=== PATIENT | male | born 1945 ===

== ENCOUNTER 2021-03-10 12:37 | Inpatient (IN) ==
[2021-03-10] MEDS ORDERED: 0.9 % SODIUM CHLORIDE 1,000 ML IV ONE (12:43)
--- NOTE | 2021-03-10 13:07 | Emergency Department Note ---
Weakness HPI General Chief complaint: Weakness Stated complaint: Weakness Time Seen by Provider: 03/10/21 12:42 Mode of arrival: EMS History of Present Illness HPI Narrative: This is a 75-year-old male who lives independently at home recently admitted to [facility] for Covid pneumonia from 03/06/2021 to 03/09/2021. He was sent home yesterday, and family noticed this morning that he was incontinent of feces and urine, having difficulty breathing, was confused and very weak and called EMS to have him brought into [facility]. Patient is a former smoker who was diagnosed with Covid pneumonia 1 week prior to his admission to [facility]. At [facility] he was given IV remdesivir and steroid and had rapid improvement of his O2 requirements. There was some concern for muffled speech and confusion and he had a head CT of the brain that was negative for stroke. He was sent home on guaifenesin and a 5-day burst of prednisone 40 mg. Patient is not on other medications, no other known medical issues. Related Data Home Medications Medication Instructions Recorded Confirmed No Known Home Meds 03/10/21 03/10/21 Allergies Allergy/AdvReac Type Severity Reaction Status Date / Time No Known Drug Allergies Allergy Verified 03/10/21 12:38 Review of Systems ROS ROS Narrative: Narrative: All systems ED: reviewed and negative except as stated. [facility] Narrative Patient History Narrative: Narrative: Medical/Surgical/Family History All Active Problems (Updated 03/10/21 @ 18:07 by Araceli Ruggiero PA-C) Pneumonia due to COVID-19 virus (Acute) Hypoxia (Acute) Encephalopathy (Acute) Weakness (Acute) Pneumonia due to 2019 novel coronavirus (Acute) Social History Smoking Status: Former smoker Exam Narrative Narrative: General: Minimally interactive, not answer my questions and not able to follow commands. He is ill-appearing. HEENT: PERRLA, EOMI, normocephalic. Dry mucous membranes. Normal facies and normal dentition. Chest: Symmetric, no pain to palpation Respiratory: Lungs clear to auscultation bilaterally. No respiratory distress. Unlabored breathing. Heart: Regular rate and rhythm, no murmurs/clicks/rubs. Abdomen: Non-tender, Non distended, normal bowel tones. No organomegaly. Extremities: Warm and well perfused. No edema. DP 2+ bilaterally. No venous stasis. Neuro: Moving all fours. No facial droop. Unable to do full cranial nerve exam due to altered mental status. Skin: Warm dry, no rashes or lesions, no cyanosis. Psych: Altered mental status Heme/Lymph: No abnormal bruising Course Course Course Narrative: 75-year-old male presents with weakness, altered mental status and recent admission for Covid pneumonia. Reevaluation(s) Reevaluation #1: Obtain chest x-ray, basic lab work, lactic acid Establish IV access and give IV fluids Covid swab Reevaluation #2: Antigen Covid swab is negative. Lactic acid not elevated. No leukocytosis, no renal dysfunction. Mild transaminitis. No electrolyte abnormalities. Chest x-ray shows stable bilateral infiltrates when compared to chest x-ray and CTA of the chest from 03/06/2021. Reevaluation #3: Patient is unsafe for discharge home given his weakness and altered mental status. I have no clear reason for that at this time. The patient did have a CT of the head at [facility] within the last 2 days that was negat kelsea for acute findings think the patient needs to come in for further work-up. I discussed the case with the hospitalist and he would like me to order an ABG, repeat CT of the head, procalcitonin to rule out infection, and we will obtain a UA. Additional Reevaluation(s): Head CT shows no acute findings and age related atrophy. ABG with pH of 7.45, PCO2 32, PO2 of 61, lactic acid of 1.4. Bicarb is 22.2 Vital Signs Vital signs: Vital Signs Temperature 98.1 F 03/10/21 12:39 Pulse Rate 95 H 03/10/21 12:39 Respiratory Rate 20 03/10/21 12:39 Blood Pressure 167/80 03/10/21 12:39 Pulse Oximetry (%) 95 03/10/21 12:39 Temperature 98.1 F 03/10/21 12:39 Pulse Rate 81 03/10/21 18:17 Respiratory Rate 20 03/10/21 12:39 Blood Pressure 140/84 03/10/21 18:17 Pulse Oximetry (%) 92 03/10/21 18:17 [facility] MDM Narrative Medical decision making narrative: Weakness Encephalopathy Covid pneumonia As above, the patient is unsafe discharge home. He remains encephalopathic. I discussed case with the hospitalist who is accepted the patient for admission. Lab Data Result diagrams: 03/10/21 12:43 03/10/21 12:43 Labs: Lab Results 03/10/21 03/10/21 03/10/21 Range/Units 12:43 12:43 13:45 WBC 11.7 H (4.5-11.0) K/mcL RBC 5.34 (4.50-5.90) M/mcL Hgb 15.5 (13.5-16.5) g/dL Hct 46.1 (41.0-55.0) % MCV 86.3 (80.0-100.0) fL MCH 29.0 (26.0-34.0) pg MCHC 33.6 (31.0-36.0) g/dL RDW 13.3 (11.5-14.5) % Plt Count 315 (140-440) K/mcL MPV 11.1 H (7.4-10.4) fL Neut % (Auto) 82.8 H (38.0-78.0) % Lymph % (Auto) 7.5 L (15.0-49.0) % Jay % (Auto) 9.5 (1.0-12.0) % Eos % (Auto) 0 (0.0-7.0) % Baso % (Auto) 0.2 (0.0-2.0) % Lymph # (Auto) 0.88 L (1.50-4.80) K/mcL Jay # (Auto) 1.11 H (0.10-0.90) K/mcL Eos # (Auto) 0 (0.00-0.70) K/mcL Baso # (Auto) 0.02 (0.00-0.20) K/mcL Seg Neutrophils % (38-78) % Lymphocytes % (15-49) % Monocytes % (Manual) (1-12) % Absolute Neutrophils 9.72 H (1.80-8.00) K/mcL Platelet Estimate (Normal) RBC Morphology (Normal) VBG Lactic Acid < 0.2 L (0.5-2.0) mmol/L Sodium 141 (133-145) mmol/L Potassium 3.8 (3.3-5.1) mmol/L Chloride 109 H (96-108) mmol/L Carbon Dioxide 21 L (22-30) mmol/L Anion Gap 11.0 (8.0-16.0) BUN 21 (8-23) mg/dL Creatinine 0.7 (0.7-1.2) mg/dL GFR Calculation 91 Glucose 101 (70-105) mg/dL Calcium 9.0 (8.6-10.4) mg/dL Total Bilirubin 0.7 (0.1-1.0) mg/dL AST 57 H (<40) U/L ALT 45 H (<40) U/L Alkaline Phosphatase 56 (39-117) U/L Total Protein 5.8 L (5.9-8.4) gm/dL Albumin 3.0 L (3.2-5.2) gm/dL Globulin 2.8 (2.2-3.7) gm/dL Albumin/Globulin Ratio 1.1 (1.0-2.3) Procalcitonin (<0.10) ng/mL 03/10/21 03/10/21 Range/Units 16:57 16:57 WBC (4.5-11.0) K/mcL RBC (4.50-5.90) M/mcL Hgb (13.5-16.5) g/dL Hct (41.0-55.0) % MCV (80.0-100.0) fL MCH (26.0-34.0) pg MCHC (31.0-36.0) g/dL RDW (11.5-14.5) % Plt Count (140-440) K/mcL MPV (7.4-10.4) fL Neut % (Auto) (38.0-78.0) % Lymph % (Auto) (15.0-49.0) % Jay % (Auto) (1.0-12.0) % Eos % (Auto) (0.0-7.0) % Baso % (Auto) (0.0-2.0) % Lymph # (Auto) (1.50-4.80) K/mcL Jay # (Auto) (0.10-0.90) K/mcL Eos # (Auto) (0.00-0.70) K/mcL Baso # (Auto) (0.00-0.20) K/mcL Seg Neutrophils % 77 (38-78) % Lymphocytes % 8 L (15-49) % Monocytes % (Manual) 15 H (1-12) % Absolute Neutrophils (1.80-8.00) K/mcL Platelet Estimate Normal (Normal) RBC Morphology Normal (Normal) VBG Lactic Acid (0.5-2.0) mmol/L Sodium (133-145) mmol/L Potassium (3.3-5.1) mmol/L Chloride (96-108) mmol/L Carbon Dioxide (22-30) mmol/L Anion Gap (8.0-16.0) BUN (8-23) mg/dL Creatinine (0.7-1.2) mg/dL GFR Calculation Glucose (70-105) mg/dL Calcium (8.6-10.4) mg/dL Total Bilirubin (0.1-1.0) mg/dL AST (<40) U/L ALT (<40) U/L Alkaline Phosphatase (39-117) U/L Total Protein (5.9-8.4) gm/dL Albumin (3.2-5.2) gm/dL Globulin (2.2-3.7) gm/dL Albumin/Globulin Ratio (1.0-2.3) Procalcitonin 0.17 H (<0.10) ng/mL ED POC Tests ED POC Tests: DINORA - SARS Antigen Negative Discharge Plan Patient/Caregiver Discharge Instructions Pt seen by WARRANT CLERK/PA only: Yes Clinical Impression: Encephalopathy, Weakness, Pneumonia due to 2019 novel coronavirus Patient Disposition: Xfer As Inpt ([facility]) Prescriptions: No Action No Known Home Meds RF: 0
--- NOTE | 2021-03-10 13:26 | XRay Report ---
HISTORY: Follow-up Covid pneumonia FINDINGS: Moderate diffuse bilateral alveolar infiltrates are present. These predominantly involve the periphery of the lungs. There is greater involvement in the left side than on the right. Lung volumes are normal. No pleural effusion is present. The heart size is normal. Comparison with the prior CT done on 03/06/21 shows little change. IMPRESSION: Stable bilateral pneumonia Interpreted and Authenticated by: Alex Luna 03/10/21
[2021-03-10 13:42] LABS: Basophils # (Auto) 0.02 K/mcL (0.00-0.20); Basophils % (Auto) 0.2 % (0.0-2.0); Eosinophils # (Auto) 0 K/mcL (0.00-0.70); Eosinophils % (Auto) 0 % (0.0-7.0); Hematocrit 46.1 % (41.0-55.0); Hemoglobin 15.5 g/dL (13.5-16.5); Lymphocytes # (Auto) 0.88 K/mcL (1.50-4.80); Lymphocytes % (Auto) 7.5 % (15.0-49.0); Mean Cell Volume 86.3 fL (80.0-100.0); Mean Corpuscular HGB Conc 33.6 g/dL (31.0-36.0); Mean Platelet Volume 11.1 fL (7.4-10.4); Monocytes # (Auto) 1.11 K/mcL (0.10-0.90); Monocytes % (Auto) 9.5 % (1.0-12.0); Neutrophils % (Auto) 82.8 % (38.0-78.0); Platelet Count 315 K/mcL (140-440); RBC 5.34 M/mcL (4.50-5.90); Red Cell Distribution Width 13.3 % (11.5-14.5); WBC 11.7 K/mcL (4.5-11.0)
[2021-03-10 13:59] LABS: ALT/SGPT 45 U/L (<40); AST/SGOT 57 U/L (<40); Albumin/Globulin Ratio 1.1 (1.0-2.3); Alkaline Phosphatase 56 U/L (39-117); Bilirubin,Total 0.7 mg/dL (0.1-1.0); Blood Urea Nitrogen 21 mg/dL (8-23); Carbon Dioxide 21 mmol/L (22-30); Chloride 109 mmol/L (96-108); Globulin 2.8 gm/dL (2.2-3.7); Glomerular Filtration Rate 91; Glucose 101 mg/dL (70-105)
--- NOTE | 2021-03-10 16:26 | Emergency Department Note ---
ED Note Addendum Note Addendum: I evaluated and treated this patient in conjunction with the TA. I agree with their documented history, examination and medical decision making as documented separately. I also evaluated the patient in person with the following additional findings: Patient is complaining of shortness of breath. He notes this has improved throughout his emergency department stay but after ambulating on his baseline home oxygen his symptoms have once again worsened. He says this feels similar to prior COPD exacerbations. At the time of my exam he is on 2 L supplemental oxygen via simple mask and is able to speak in short sentences but does have significantly increased work of breathing with conversation. I consider the possibility of pulmonary embolus given his recent trauma but given the similarity to prior COPD exacerbations and his significant improvement with treatment I do not think this is the cause of his symptoms. Given his persistent shortness of breath with exertion and conversation I recommended he be admitted he was agreeable with the plan.
--- NOTE | 2021-03-10 17:39 | Cat Scan Report ---
History: Altered mental status with increased weakness TECHNIQUE: The brain was imaged without contrast in axial plane at 2.5 mm intervals. Radiation exposure was limited using dose reduction technology. FINDINGS: There is moderate mucosal thickening with air-fluid levels in the left side of the sphenoid sinus. Mild mucosal thickening is seen along the david of a couple left-sided ethmoid air cells. The remainder the visualized sinuses are clear. There is moderate generalized atrophy above the tentorium with milder cerebellar atrophy. Patchy areas of decreased attenuation are present in the centrum semiovale within the frontal and parietal lobes. There is no apparent infarct. No hemorrhage or mass effect are present. There is no abnormal extra-axial fluid collection. The ventricles are normal in size allowing for atrophy. Comparison the prior head CT done on 05/09/07 shows the atrophy and white matter changes were not present at that time. Sinusitis is also new. IMPRESSION: Moderate degenerative changes in the brain with atrophy and diffuse white matter disease. Moderate left sphenoid sinusitis Araceli Ruggiero was called with report Interpreted and Authenticated by: Alex Luna 03/10/21
--- NOTE | 2021-03-10 18:09 | Internal Med History&Physical ---
HPI History of Present Illness Patient information: Note initiated : 03/10/21 at 6:04 pm Service Date, if different from initiated Date: [] Patient: Holger Marx a 75 y/o M admitted on for Weakness. Chief Complaint: [] History of present illness: Mr. Marx is a 75 year old M Presented to ED found by family because he was incontinent of stool and feces and confused. Sound like he lives by himself. He was recently diagnosed with Covid by EMS but continued to have shortness of breath and weakness and was brought in the ED on the fifth he was transferred to [facility] where he was treated until the eighth for Covid pneumonia and discharged home. Laboratory work-up was essentially unremarkable other than a mildly elevated white blood cell count. Appear to be dry. UA is pending procalcitonin is pending chest x-ray stable from the CT chest done [address] brain shows a moderate diffuse atrophy and chronic ischemic changes. Review of systems: Unable to gather as I am unable to understand his minimal verbalizations PFSH PFSH All Active Problems (Updated 03/10/21 @ 18:07 by Araceli Ruggiero PA-C) Pneumonia due to COVID-19 virus (Acute) Hypoxia (Acute) Encephalopathy (Acute) Weakness (Acute) Pneumonia due to 2019 novel coronavirus (Acute) MEDS/ALLERGIES Home Medications and Allergies Home Medications Medication Instructions Recorded Confirmed Type No Known Home Meds 03/10/21 03/10/21 History Allergies Allergy/AdvReac Type Severity Reaction Status Date / Time No Known Drug Allergies Allergy Verified 03/10/21 12:38 EXAM Constitutional Vitals: Temp Pulse Resp BP Pulse Ox 98.1 F 87 20 115/69 96 03/10/21 12:39 03/10/21 13:17 03/10/21 12:39 03/10/21 14:17 03/10/21 13:17 Exam: General: Awake, No acute Distress Eyes/N/T: EOMI, PERRL, dry MM Head/Neck: neck supple, normocephalic atraumatic CV: RRR, No murmurs, normal s1/s2 Pulm: Clear b/l, no wheezing/rhonchi/rales Abd: soft, nontender, +BS x4 Ext: no clubbing/cyanosis/edema Neuro: Awake apparently was more lethargic earlier. Seems to have symmetrical strength and sensations intact. no focal deficits, moves all extremities, CN 2- 12 grossly intact, although he is slow to speech and when he does start to speak its only in a mumble of a few words. Does understand me though and does follow commands Skin: warm/dry DATA Data Completed and Pending Labs: Labs from last 24 hours 03/10/21 03/10/21 03/10/21 16:57 16:57 13:45 WBC RBC Hgb Hct MCV MCH MCHC RDW Plt Count MPV Neut % (Auto) Lymph % (Auto) [place] % (Auto) Eos % (Auto) Baso % (Auto) Lymph # (Auto) [place] # (Auto) Eos # (Auto) Baso # (Auto) Absolute Neutrophils Platelet Estimate Pending RBC Morphology Pending VBG Lactic Acid < 0.2 L Sodium Potassium Chloride Carbon Dioxide Anion Gap BUN Creatinine GFR Calculation Glucose Calcium Total Bilirubin AST ALT Alkaline Phosphatase Total Protein Albumin Globulin Albumin/Globulin Ratio Procalcitonin Pending 03/10/21 03/10/21 12:43 12:43 WBC 11.7 H RBC 5.34 Hgb 15.5 Hct 46.1 MCV 86.3 MCH 29.0 MCHC 33.6 RDW 13.3 Plt Count 315 MPV 11.1 H Neut % (Auto) 82.8 H Lymph % (Auto) 7.5 L [place] % (Auto) 9.5 Eos % (Auto) 0 Baso % (Auto) 0.2 Lymph # (Auto) 0.88 L [place] # (Auto) 1.11 H Eos # (Auto) 0 Baso # (Auto) 0.02 Absolute Neutrophils 9.72 H Platelet Estimate RBC Morphology VBG Lactic Acid Sodium 141 Potassium 3.8 Chloride 109 H Carbon Dioxide 21 L Anion Gap 11.0 BUN 21 Creatinine 0.7 GFR Calculation 91 Glucose 101 Calcium 9.0 Total Bilirubin 0.7 AST 57 H ALT 45 H Alkaline Phosphatase 56 Total Protein 5.8 L Albumin 3.0 L Globulin 2.8 Albumin/Globulin Ratio 1.1 Procalcitonin A/P Narrative A/P Narrative: A: *Enephalopathy: Multifactorial factorial including dehydration plus Covid illness plus underlying dementia -Per notes from [facility] he was confused at that time and niece that he has been more confused since Covid diagnosis -pending UA and infectious w/u *recent covid PNA: -CXR no change *Acute hypoxic respiratory failure: / Covid -Was discharged on 2 L nasal cannula from [facility] *Dementia: -CT brain with diffuse moderate atrophy and ischemic changes *PVD per old notes: was supposed to be on plavix *HTN per old notes: was supposed to be on ARB/BB *Transaminitis, mild: / Covid *Generalized weakness/deconditioning/inability to care for self: P: -dexa/rem -f/u UA and PCT and man diff -IVF -clarify home meds / medical history - -PT/OT -CM for placement -ppx: Lovenox Time Spent With Patient Time: Total time spent is greater than 50% in coordination of care (as documented) at patient's floor/unit and/or counseling patient:
[2021-03-10 18:40] LABS: Lymphocytes % 8 % (15-49); Monocytes % (Manual) 15 % (1-12); Platelet Estimate NORMAL (Normal); RBC Morphology NORMAL (Normal); Segmented Neutrophils % 77 % (38-78)
[2021-03-10] MEDS ORDERED: MAGNESIUM SULFATE 2 GM/50 ML BAG IV PRN (20:13)
[2021-03-10] MEDS ORDERED: ONDANSETRON 4 MG/2 ML VIAL IV PRN (20:13)
[2021-03-10] MEDS ORDERED: POTASSIUM CHLORIDE 40 MEQ in DEXTROSE 5% IN WATER 500 ML IV PRN (20:13)
[2021-03-10] MEDS ORDERED: ACETAMINOPHEN 325 MG TABLET PO PRN (20:13)
[2021-03-10] MEDS ORDERED: POLYETHYLENE GLYCOL 3350 17 GM PACKET PO PRN (20:13)
[2021-03-10] MEDS ORDERED: 0.9 % SODIUM CHLORIDE 1,000 ML IV SCH (20:13)
[2021-03-10] MEDS ORDERED: IPRATROPIUM/ALBUTEROL 3 ML AMPUL.NEB NEB PRN (20:13)
[2021-03-10] MEDS ORDERED: POTASSIUM CHLORIDE 20 MEQ TABLET PO PRN ×2 (20:13)
[2021-03-10] MEDS: DEXAMETHASONE 4 MG TABLET PO SCH (21:03)
[2021-03-10] MEDS: REMDESIVIR 100 MG in 0.9 % SODIUM CHLORIDE 250 ML IV SCH (21:03)
[2021-03-10] MEDS: 0.9 % SODIUM CHLORIDE 10 ML SYRINGE IV SCH (21:04)
[2021-03-11] MEDS: 0.9 % SODIUM CHLORIDE 10 ML SYRINGE IV SCH ×3 (04:11→22:00)
[2021-03-11 06:42] LABS: Hematocrit 41.7 % (41.0-55.0); Hemoglobin 13.8 g/dL (13.5-16.5); Mean Cell Volume 87.1 fL (80.0-100.0); Mean Corpuscular HGB Conc 33.1 g/dL (31.0-36.0); Mean Platelet Volume 11.2 fL (7.4-10.4); Platelet Count 267 K/mcL (140-440); RBC 4.79 M/mcL (4.50-5.90); Red Cell Distribution Width 13.4 % (11.5-14.5); WBC 7.5 K/mcL (4.5-11.0)
[2021-03-11 06:58] LABS: ALT/SGPT 41 U/L (<40); AST/SGOT 41 U/L (<40); Albumin 2.8 gm/dL (3.2-5.2); Albumin/Globulin Ratio 1.1 (1.0-2.3); Alkaline Phosphatase 51 U/L (39-117); Bilirubin,Direct 0.3 mg/dL (<0.3); Bilirubin,Total 0.5 mg/dL (0.1-1.0); Blood Urea Nitrogen 21 mg/dL (8-23); Calcium 8.9 mg/dL (8.6-10.4); Carbon Dioxide 23 mmol/L (22-30); Chloride 109 mmol/L (96-108); Globulin 2.5 gm/dL (2.2-3.7); Glomerular Filtration Rate 104; Glucose 116 mg/dL (70-105); Lactate Dehydrogenase 257 U/L (135-225); Phosphorous 2.4 mg/dL (2.5-4.5); Triglycerides 51 mg/dL (<150)
--- NOTE | 2021-03-11 07:31 | Internal Med Progress Note ---
SUBJECTIVE Subjective Patient information: Note initiated : 03/11/21 at 7:27 am Service Date, if different from initiated Date: [] Patient: Holger Marx a 75 y/o M admitted on 03/10/21 for Weakness. Chief Complaint: [] Interval history: History of present illness: Mr. Marx is a 75 year old M Presented to ED found by family because he was incontinent of stool and feces and confused. Sound like he lives by himself. He was recently diagnosed with Covid by EMS but continued to have shortness of breath and weakness and was brought in the ED on the fifth he was transferred to [facility] where he was treated until the eighth for Covid pneumonia and discharged home. Laboratory work-up was essentially unremarkable other than a mildly elevated white blood cell count. Appear to be dry. UA is pending procalcitonin is pending chest x-ray stable from the CT chest done [address] brain shows a moderate diffuse atrophy and chronic ischemic changes. 03/11 No overnight event. Patient speech is a little more clear today. Able to tell me his name more clearly and that he is in [place] Nods yes or no to review of systems questions. Review of Systems: denies headache/fever/chills/nausea/vomiting/chest or abdominal pain/cough/dyspnea/diarrhea. Otherwise see above. Constitutional Vitals: Vital Signs Temp Pulse Resp BP Pulse Ox 97 F 60 16 161/75 90 03/11/21 06:59 03/11/21 06:59 03/11/21 06:59 03/11/21 06:59 03/11/21 06:59 Period Temp Pulse Resp BP Sys/Mena Pulse Ox Last 24 Hr 97 F-98.1 F 60-95 16-20 87-167/49-101 90-99 Intake and Output 03/10/21 03/11/21 03/11/21 21:59 05:59 13:59 Intake Total 450 Output Total 4 Balance 446 Weight 78.925 kg Intake & Output: Intake & Output 03/10/21 03/11/21 03/11/21 21:59 05:59 13:59 Intake Total 450 Output Total 4 Balance 446 Weight 78.925 kg Intake: IV 250 Veklury 100 mg In Sodium 250 Chloride 0.9% 250 ml @ 500 mls/ hr IV Q24H TRINY Rx#:[id number] Oral 200 Output: # of times incontinent of urine 4 Other: # of times incontinent of 0 Bowels Exam: General: Awake, No acute Distress Eyes/N/T: EOMI, Head/Neck: neck supple, CV: RRR, No murmurs, Pulm: Clear b/l, no wheezing/rhonchi/rales Abd: soft, nontender, +BS x4 Ext: no clubbing/cyanosis/edema Neuro: Awake. Seems to have symmetrical strength and sensations intact. no focal deficits, moves all extremities, speech more clear and answering more questions although still does have a little bit of mumbling and short answers. Follows commands Skin: warm/dry OBJ DATA Labs CBC & Chem 7: 03/11/21 05:19 03/11/21 05:19 Labs: Abnormal Lab Results 03/11/21 03/11/21 03/10/21 05:19 05:19 21:05 WBC MPV 11.2 H Neut % (Auto) Lymph % (Auto) Lymph # (Auto) [place] # (Auto) Lymphocytes % Monocytes % (Manual) Absolute Neutrophils VBG Lactic Acid Chloride 109 H Carbon Dioxide Creatinine 0.5 L Glucose 116 H Phosphorus 2.4 L Direct Bilirubin 0.3 H AST 41 H ALT 41 H Lactate Dehydrogenase 257 H C-Reactive Protein 12.20 H Total Protein 5.3 L Albumin 2.8 L Procalcitonin 03/10/21 03/10/21 03/10/21 16:57 16:57 13:45 WBC MPV Neut % (Auto) Lymph % (Auto) Lymph # (Auto) [place] # (Auto) Lymphocytes % 8 L Monocytes % (Manual) 15 H Absolute Neutrophils VBG Lactic Acid < 0.2 L Chloride Carbon Dioxide Creatinine Glucose Phosphorus Direct Bilirubin AST ALT Lactate Dehydrogenase C-Reactive Protein Total Protein Albumin Procalcitonin 0.17 H 03/10/21 03/10/21 12:43 12:43 WBC 11.7 H MPV 11.1 H Neut % (Auto) 82.8 H Lymph % (Auto) 7.5 L Lymph # (Auto) 0.88 L [place] # (Auto) 1.11 H Lymphocytes % Monocytes % (Manual) Absolute Neutrophils 9.72 H VBG Lactic Acid Chloride 109 H Carbon Dioxide 21 L Creatinine Glucose Phosphorus Direct Bilirubin AST 57 H ALT 45 H Lactate Dehydrogenase C-Reactive Protein Total Protein 5.8 L Albumin 3.0 L Procalcitonin Meds: Medications Acetaminophen (Acetaminophen 325 Mg Tablet) 650 mg PO Q6HP PRN PRN Reason: PAIN/FEVER > 101 Albuterol/Ipratropium (Ipratropium/Albuterol 3 Ml Ampul.Neb) 3 ml NEB Q4HP PRN PRN Reason: Shortness Of Breath Dexamethasone (Dexamethasone 4 Mg Tablet) 6 mg PO DAILY [facility] Last Admin: 03/10/21 21:03 Dose: 6 mg Documented by: Enoxaparin Sodium (Enoxaparin 40 Mg/0.4 Ml Syringe) 40 mg SQ DAILY [facility] Potassium Chloride 40 meq/ (Dextrose) 520 mls @ 130 mls/hr IV UD PRN PRN Reason: Potassium < 3 Magnesium Sulfate (Magnesium Sulfate) 2 gm in 50 mls @ 50 mls/hr IV UD PRN PRN Reason: Magnesium </= 1.6 Sodium Chloride (Sodium Chloride 0.9%) 1,000 mls @ 75 mls/hr IV .[id number] [facility] Stop: 03/11/21 09:32 Last Admin: 03/10/21 21:04 Dose: 75 mls/hr Documented by: REMDESIVIR 100 mg/ Sodium (Chloride) 250 mls @ 500 mls/hr IV Q24H [facility] Stop: 03/11/21 21:29 Last Infusion: 03/10/21 22:00 Dose: Infused Documented by: Ondansetron HCl (Ondansetron 4 Mg/2 Ml Vial) 4 mg IV Q4HP PRN PRN Reason: Nausea And Vomiting Polyethylene Glycol (Polyethylene Glycol 3350 17 Gm Packet) 17 gm PO DAILYP PRN PRN Reason: Constipation Potassium Chloride (Potassium Chloride 20 Meq Tablet) 40 meq PO UD PRN PRN Reason: Potssium is 3-3.5 Potassium Chloride (Potassium Chloride 20 Meq Tablet) 40 meq PO UD PRN PRN Reason: Potassium < 3 Sodium Chloride (0.9 % Sodium Chloride 10 Ml Syringe) 10 ml IV Q8 [facility] Last Admin: 03/11/21 04:11 Dose: Not Given Documented by: A/P Narrative A/P Narrative: A: *Enephalopathy: Multifactorial factorial including dehydration + Covid illness + underlying dementia -Per notes from [facility] he was confused at that time and niece that he has been more confused since Covid diagnosis -CT brain no acute -pending UA and infectious w/u -improving *recent covid PNA: -CXR no change, b/l infiltrates *Acute hypoxic respiratory failure: 10/04 Covid -Was discharged on 2 L nasal cannula from [facility], now on 1L *Dementia: -CT brain with diffuse moderate atrophy and ischemic changes *PVD per old notes: was supposed to be on plavix *HTN per old notes: was supposed to be on ARB/BB *Transaminitis, mild: / Covid *Generalized weakness/deconditioning/inability to care for self: P: -dexa/rem -f/u UA -IVF -clarify home meds / medical history - -PT/OT -CM for placement -ppx: Lovenox Time Spent With Patient Time: Total time spent is greater than 50% in coordination of care (as documented) at patient's floor/unit and/or counseling patient: QUALITY VTE Deep Vein Thrombosis/Pulmonary Embolism Present on Admission: No
[2021-03-11 07:46] LABS: Band Neutrophils % 2 % (0-10); Lymphocytes % 10 % (15-49); Monocytes % (Manual) 1 % (1-12); RBC Morphology NORMAL (Normal); Segmented Neutrophils % 87 % (38-78)
[2021-03-11 08:06] LABS: Platelet Estimate NORMAL (Normal)
[2021-03-11] MEDS: ENOXAPARIN 40 MG/0.4 ML SYRINGE SQ SCH (08:51)
[2021-03-11] MEDS: DEXAMETHASONE 4 MG TABLET PO SCH (08:51)
[2021-03-11 15:33] LABS: Appearance,Urine Clear (Clear); Bilirubin,Urine Negative (Negative); Color,Urine Yellow; Culture Indicated,Urine No; Ketones,Urine 40 mg/dL mg/dL (Negative); Leukocyte Esterase,Urine Negative /ug (Negative); Mucus,Urine FEW /hpf; Nitrate,Urine Negative (Negative); PH,Urine 6.5 (5.0-9.0); Protein,Urine Trace mg/dL (Negative); Urine Blood Negative ery/mcL (Negative); Urine RBC < 1 /hpf (0-3); Urine Squamous Epithelial Cell 0 /hpf (0-4); Urine WBC 1 /hpf (0-4); Urobilinogen,Urine >=8.0 E.U./dL mg/dL
[2021-03-11] MEDS: REMDESIVIR 100 MG in 0.9 % SODIUM CHLORIDE 250 ML IV SCH (21:59)
[2021-03-12] MEDS: 0.9 % SODIUM CHLORIDE 10 ML SYRINGE IV SCH ×3 (05:24→20:29)
[2021-03-12] MEDS: DEXAMETHASONE 4 MG TABLET PO SCH (09:05)
[2021-03-12] MEDS: ENOXAPARIN 40 MG/0.4 ML SYRINGE SQ SCH (09:06)
--- NOTE | 2021-03-12 13:58 | Internal Med Progress Note ---
SUBJECTIVE Subjective Patient information: Note initiated : 03/12/21 at 1:57 pm Service Date, if different from initiated Date: [] Patient: Holger Marx a 75 y/o M admitted on 03/10/21 for Weakness. Chief Complaint: [] Interval history: History of present illness: Mr. Marx is a 75 year old M Presented to ED found by family because he was incontinent of stool and feces and confused. Sound like he lives by himself. He was recently diagnosed with Covid by EMS but continued to have shortness of breath and weakness and was brought in the ED on the fifth he was transferred to [facility] where he was treated until the eighth for Covid pneumonia and discharged home. Laboratory work-up was essentially unremarkable other than a mildly elevated white blood cell count. Appear to be dry. UA is pending procalcitonin is pending chest x-ray stable from the CT chest done [address] brain shows a moderate diffuse atrophy and chronic ischemic changes. 03/11 No overnight event. Patient speech is a little more clear today. Able to tell me his name more clearly and that he is in [place] yes or no to review of systems questions. 03/12 Awaiting for placement. Review of Systems: denies headache/fever/chills/nausea/vomiting/chest or abdominal pain/cough/dyspnea/diarrhea. Constitutional Vitals: Vital Signs Temp Pulse Resp BP Pulse Ox 97.8 F 60 20 131/57 96 03/12/21 11:14 03/12/21 03:46 03/12/21 11:14 03/12/21 11:14 03/12/21 11:14 Period Temp Pulse Resp BP Sys/Mena Pulse Ox Last 24 Hr 97 F-97.8 F 60-70 16-20 131-149/57-64 92-97 Intake and Output 03/11/21 03/12/21 03/12/21 21:59 05:59 13:59 Intake Total 450 Balance 450 Weight 78.471 kg Intake & Output: Intake & Output 03/11/21 03/12/21 03/12/21 21:59 05:59 13:59 Intake Total 450 Balance 450 Weight 78.471 kg Intake: IV 250 Veklury 100 mg In Sodium 250 Chloride 0.9% 250 ml @ 500 mls/ hr IV Q24H [facility] Rx#:[id number] Oral 200 Other: Meal Lunch Percent of Meal Consumed 25% Feeding Ability Independent Urine Appearance Clear Urine Color Bright Yellow # Voids 2 Exam: General: Awake, No acute Distress Eyes/N/T: EOMI, Head/Neck: neck supple, CV: RRR, No murmurs, Pulm: Clear b/l, no wheezing/rhonchi/rales Abd: soft, nontender, +BS x4 Ext: no clubbing/cyanosis/edema Neuro: Awake. Seems to have symmetrical strength and sensations intact. no focal deficits, moves all extremities, speech clear. Follows commands Skin: warm/dry OBJ DATA Labs CBC & Chem 7: 03/11/21 05:19 03/11/21 05:19 Labs: Abnormal Lab Results 03/11/21 03/11/21 03/10/21 05:19 05:19 21:05 WBC MPV 11.2 H Neut % (Auto) Lymph % (Auto) Lymph # (Auto) Haakon # (Auto) Seg Neutrophils % 87 H Lymphocytes % 10 L Monocytes % (Manual) Absolute Neutrophils VBG Lactic Acid Chloride 109 H Carbon Dioxide Creatinine 0.5 L Glucose 116 H Phosphorus 2.4 L Direct Bilirubin 0.3 H AST 41 H ALT 41 H Lactate Dehydrogenase 257 H C-Reactive Protein 12.20 H Total Protein 5.3 L Albumin 2.8 L Procalcitonin Urine Protein Urine Glucose (UA) Urine Ketones Urine Urobilinogen Urine Mucus 03/10/21 03/10/21 03/10/21 16:57 16:57 13:45 WBC MPV Neut % (Auto) Lymph % (Auto) Lymph # (Auto) Haakon # (Auto) Seg Neutrophils % Lymphocytes % 8 L Monocytes % (Manual) 15 H Absolute Neutrophils VBG Lactic Acid < 0.2 L Chloride Carbon Dioxide Creatinine Glucose Phosphorus Direct Bilirubin AST ALT Lactate Dehydrogenase C-Reactive Protein Total Protein Albumin Procalcitonin 0.17 H Urine Protein Urine Glucose (UA) Urine Ketones Urine Urobilinogen Urine Mucus 03/10/21 03/10/21 03/10/21 12:43 12:43 10:24 WBC 11.7 H MPV 11.1 H Neut % (Auto) 82.8 H Lymph % (Auto) 7.5 L Lymph # (Auto) 0.88 L Haakon # (Auto) 1.11 H Seg Neutrophils % Lymphocytes % Monocytes % (Manual) Absolute Neutrophils 9.72 H VBG Lactic Acid Chloride 109 H Carbon Dioxide 21 L Creatinine Glucose Phosphorus Direct Bilirubin AST 57 H ALT 45 H Lactate Dehydrogenase C-Reactive Protein Total Protein 5.8 L Albumin 3.0 L Procalcitonin Urine Protein Trace A Urine Glucose (UA) 100 mg/dl A Urine Ketones 40 mg/dl A Urine Urobilinogen >=8.0 e.u./dl A Urine Mucus Few A Meds: Medications Acetaminophen (Acetaminophen 325 Mg Tablet) 650 mg PO Q6HP PRN PRN Reason: PAIN/FEVER > 101 Albuterol/Ipratropium (Ipratropium/Albuterol 3 Ml Ampul.Neb) 3 ml NEB Q4HP PRN PRN Reason: Shortness Of Breath Dexamethasone (Dexamethasone 4 Mg Tablet) 6 mg PO DAILY [facility] Last Admin: 03/12/21 09:05 Dose: 6 mg Documented by: Enoxaparin Sodium (Enoxaparin 40 Mg/0.4 Ml Syringe) 40 mg SQ DAILY [facility] Last Admin: 03/12/21 09:06 Dose: 40 mg Documented by: Potassium Chloride 40 meq/ (Dextrose) 520 mls @ 130 mls/hr IV UD PRN PRN Reason: Potassium < 3 Magnesium Sulfate (Magnesium Sulfate) 2 gm in 50 mls @ 50 mls/hr IV UD PRN PRN Reason: Magnesium </= 1.6 Ondansetron HCl (Ondansetron 4 Mg/2 Ml Vial) 4 mg IV Q4HP PRN PRN Reason: Nausea And Vomiting Polyethylene Glycol (Polyethylene Glycol 3350 17 Gm Packet) 17 gm PO DAILYP PRN PRN Reason: Constipation Potassium Chloride (Potassium Chloride 20 Meq Tablet) 40 meq PO UD PRN PRN Reason: Potssium is 3-3.5 Potassium Chloride (Potassium Chloride 20 Meq Tablet) 40 meq PO UD PRN PRN Reason: Potassium < 3 Sodium Chloride (0.9 % Sodium Chloride 10 Ml Syringe) 10 ml IV Q8 [facility] Last Admin: 03/12/21 13:20 Dose: 10 ml Documented by: A/P Narrative A/P Narrative: A: *Enephalopathy: Multifactorial factorial including dehydration + Covid illness + underlying dementia -Per notes from [facility] he was confused at that time and niece that he has been more confused since Covid diagnosis -CT brain no acute -pending UA and infectious w/u -improving *recent covid PNA: -CXR no change, b/l infiltrates *Acute hypoxic respiratory failure: 2/2 Covid -Was discharged on 2 L nasal cannula from [facility], now on 1L *Dementia: -CT brain with diffuse moderate atrophy and ischemic changes *PVD per old notes: was supposed to be on plavix *HTN per old notes: was supposed to be on ARB/BB *Transaminitis, mild: 2/2 Covid *Generalized weakness/deconditioning/inability to care for self: P: -dexa/rem -f/u UA -IVF -clarify home meds / medical history -PT/OT -CM for placement -ppx: Lovenox Time Spent With Patient Time: Total time spent is greater than 50% in coordination of care (as documented) at patient's floor/unit and/or counseling patient: QUALITY VTE Deep Vein Thrombosis/Pulmonary Embolism Present on Admission: No
[2021-03-13] MEDS: 0.9 % SODIUM CHLORIDE 10 ML SYRINGE IV SCH ×3 (05:14→19:30)
[2021-03-13] MEDS: ENOXAPARIN 40 MG/0.4 ML SYRINGE SQ SCH (09:40)
[2021-03-13] MEDS: DEXAMETHASONE 4 MG TABLET PO SCH (09:41)
--- NOTE | 2021-03-13 16:35 | Internal Med Progress Note ---
SUBJECTIVE Subjective Patient information: Note initiated : 03/13/21 at 4:32 pm Service Date, if different from initiated Date: [] Patient: Holger Marx a 75 y/o M admitted on 03/10/21 for Weakness. Chief Complaint: [] Interval history: History of present illness: Mr. Marx is a 75 year old M Presented to ED found by family because he was incontinent of stool and feces and confused. Sound like he lives by himself. He was recently diagnosed with Covid by EMS but continued to have shortness of breath and weakness and was brought in the ED on the fifth he was transferred to [facility] where he was treated until the eighth for Covid pneumonia and discharged home. Laboratory work-up was essentially unremarkable other than a mildly elevated white blood cell count. Appear to be dry. UA is pending procalcitonin is pending chest x-ray stable from the CT chest done [address] brain shows a moderate diffuse atrophy and chronic ischemic changes. 03/11 No overnight event. Patient speech is a little more clear today. Able to tell me his name more clearly and that he is in [place] yes or no to review of systems questions. 03/12 Awaiting for placement. 03/13 Follows simple commands, no issues overnight, awaiting placement. Review of Systems: denies headache/fever/chills/nausea/vomiting/chest or abdominal pain/cough/dyspn ea/diarrhea. Constitutional Vitals: Vital Signs Temp Pulse Resp BP Pulse Ox 97.5 F 74 15 146/93 93 03/13/21 15:34 03/13/21 15:34 03/13/21 15:34 03/13/21 15:34 03/13/21 15:34 Period Temp Pulse Resp BP Sys/Mena Pulse Ox Last 24 Hr 97.5 F-98.7 F 51-75 15-18 120-148/73-93 92-95 Intake and Output 03/13/21 03/13/21 03/13/21 05:59 13:59 21:59 Intake Total 300 Balance 300 Weight 77.428 kg Patient Weight 03/14/21 05:59 Weight 77.428 kg Intake & Output: Intake & Output 03/13/21 03/13/21 03/13/21 05:59 13:59 21:59 Intake Total 300 Balance 300 Weight 77.428 kg Intake: Oral 300 Other: Meal Breakfast Lunch Percent of Meal Consumed Refused 0% # Voids 1 1 2 Exam: General: Awake, No acute Distress Eyes/N/T: EOMI, Head/Neck: neck supple, CV: RRR, No murmurs, Pulm: Clear b/l, no wheezing/rhonchi/rales Abd: soft, nontender, +BS x4 Ext: no clubbing/cyanosis/edema Neuro: Awake. Symmetrical strength and sensations intact. no focal deficits, moves all extremities, speech clear. Follows commands Skin: warm/dry OBJ DATA Labs CBC & Chem 7: 03/11/21 05:19 03/11/21 05:19 Labs: Abnormal Lab Results 03/11/21 03/11/21 03/10/21 05:19 05:19 21:05 MPV 11.2 H Seg Neutrophils % 87 H Lymphocytes % 10 L Monocytes % (Manual) Chloride 109 H Creatinine 0.5 L Glucose 116 H Phosphorus 2.4 L Direct Bilirubin 0.3 H AST 41 H ALT 41 H Lactate Dehydrogenase 257 H C-Reactive Protein 12.20 H Total Protein 5.3 L Albumin 2.8 L Procalcitonin Urine Protein Urine Glucose (UA) Urine Ketones Urine Urobilinogen Urine Mucus 03/10/21 03/10/21 03/10/21 16:57 16:57 10:24 MPV Seg Neutrophils % Lymphocytes % 8 L Monocytes % (Manual) 15 H Chloride Creatinine Glucose Phosphorus Direct Bilirubin AST ALT Lactate Dehydrogenase C-Reactive Protein Total Protein Albumin Procalcitonin 0.17 H Urine Protein Trace A Urine Glucose (UA) 100 mg/dl A Urine Ketones 40 mg/dl A Urine Urobilinogen >=8.0 e.u./dl A Urine Mucus Few A Meds: Medications Acetaminophen (Acetaminophen 325 Mg Tablet) 650 mg PO Q6HP PRN PRN Reason: PAIN/FEVER > 101 Last Admin: 03/12/21 20:29 Dose: 650 mg Documented by: Albuterol/Ipratropium (Ipratropium/Albuterol 3 Ml Ampul.Neb) 3 ml NEB Q4HP PRN PRN Reason: Shortness Of Breath Dexamethasone (Dexamethasone 4 Mg Tablet) 6 mg PO DAILY [facility] Last Admin: 03/13/21 09:41 Dose: 6 mg Documented by: Enoxaparin Sodium (Enoxaparin 40 Mg/0.4 Ml Syringe) 40 mg SQ DAILY [facility] Last Admin: 03/13/21 09:40 Dose: 40 mg Documented by: Potassium Chloride 40 meq/ (Dextrose) 520 mls @ 130 mls/hr IV UD PRN PRN Reason: Potassium < 3 Magnesium Sulfate (Magnesium Sulfate) 2 gm in 50 mls @ 50 mls/hr IV UD PRN PRN Reason: Magnesium </= 1.6 Ondansetron HCl (Ondansetron 4 Mg/2 Ml Vial) 4 mg IV Q4HP PRN PRN Reason: Nausea And Vomiting Polyethylene Glycol (Polyethylene Glycol 3350 17 Gm Packet) 17 gm PO DAILYP PRN PRN Reason: Constipation Potassium Chloride (Potassium Chloride 20 Meq Tablet) 40 meq PO UD PRN PRN Reason: Potssium is 3-3.5 Potassium Chloride (Potassium Chloride 20 Meq Tablet) 40 meq PO UD PRN PRN Reason: Potassium < 3 Sodium Chloride (0.9 % Sodium Chloride 10 Ml Syringe) 10 ml IV Q8 [facility] Last Admin: 03/13/21 12:29 Dose: 10 ml Documented by: A/P Narrative A/P Narrative: A: *Likely resolved encephalopathy: Multifactorial factorial including dehydration + Covid illness + underlying dementia -Per notes from [facility] he was confused at that time and niece that he has been more confused since Covid diagnosis -CT brain no acute -pending UA and infectious w/u -improving *Recent COVID PNA: -CXR b/l infiltrates *Resolved acute hypoxic respiratory failure: 2/2 Covid -Was discharged on 2 L nasal cannula from [facility], now on room air *Dementia: -CT brain with diffuse moderate atrophy and ischemic changes *PVD per old notes: was supposed to be on plavix *HTN per old notes: was supposed to be on ARB/BB *Transaminitis, mild: possibly 2/2 Covid *Generalized weakness/deconditioning/inability to care for self: Plan: -On dexamethasone for recent COVID-19 and hypoxemia. -PT/OT -CM for placement -DVT ppx: Lovenox -Disposition: TBD Time Spent With Patient Time: Total time spent is greater than 50% in coordination of care (as documented) at patient's floor/unit and/or counseling patient: QUALITY VTE Deep Vein Thrombosis/Pulmonary Embolism Present on Admission: No
[2021-03-14] MEDS: 0.9 % SODIUM CHLORIDE 10 ML SYRINGE IV SCH ×4 (04:58→21:26)
[2021-03-14] MEDS: DEXAMETHASONE 4 MG TABLET PO SCH (08:04)
[2021-03-14] MEDS: ENOXAPARIN 40 MG/0.4 ML SYRINGE SQ SCH (08:05)
--- NOTE | 2021-03-14 14:21 | Internal Med Progress Note ---
SUBJECTIVE Subjective Patient information: Note initiated : 03/14/21 at 2:20 pm Service Date, if different from initiated Date: [] Patient: Holger Marx a 75 y/o M admitted on 03/10/21 for Weakness. Chief Complaint: [] Interval history: History of present illness: Mr. Marx is a 75 year old M Presented to ED found by family because he was incontinent of stool and feces and confused. Sound like he lives by himself. He was recently diagnosed with Covid by EMS but continued to have shortness of breath and weakness and was brought in the ED on the fifth he was transferred to [facility] where he was treated until the eighth for Covid pneumonia and discharged home. Laboratory work-up was essentially unremarkable other than a mildly elevated white blood cell count. Appear to be dry. UA is pending procalcitonin is pending chest x-ray stable from the CT chest done [address] brain shows a moderate diffuse atrophy and chronic ischemic changes. 03/11 No overnight event. Patient speech is a little more clear today. Able to tell me his name more clearly and that he is in [place] yes or no to review of systems questions. 03/12 Awaiting for placement. 03/13 Follows simple commands, no issues overnight, awaiting placement. 03/14 Awaiting placement, completed Dexamethasone. Review of Systems: denies headache/fever/chills/nausea/vomiting/chest or abdominal pain/cough/dyspnea/diarrhea. Constitutional Vitals: Vital Signs Temp Pulse Resp BP Pulse Ox 98.1 F 86 16 108/68 94 03/14/21 12:00 03/14/21 12:00 03/14/21 12:00 03/14/21 12:00 03/14/21 12:00 Period Temp Pulse Resp BP Sys/Mena Pulse Ox Last 24 Hr 97.3 F-98.1 F 57-86 14-18 108-146/58-93 90-96 Intake and Output 03/14/21 03/14/21 03/14/21 05:59 13:59 21:59 Intake Total 0 Output Total 200 Balance -200 Intake & Output: Intake & Output 03/14/21 03/14/21 03/14/21 05:59 13:59 21:59 Intake Total 0 Output Total 200 Balance -200 Intake: Oral 0 Output: Void Amount 200 Other: Urine Appearance Clear Urine Color Bright Yellow Exam: General: Awake, No acute Distress Eyes/N/T: EOMI, Head/Neck: neck supple, CV: RRR, No murmurs, Pulm: Clear b/l, no wheezing/rhonchi/rales Abd: soft, nontender, +BS x4 Ext: no clubbing/cyanosis/edema Neuro: Awake. Symmetrical strength and sensations intact. no focal deficits, moves all extremities, speech clear. Follows commands Skin: warm/dry OBJ DATA Labs CBC & Chem 7: 03/11/21 05:19 03/11/21 05:19 Labs: Abnormal Lab Results 03/10/21 10:24 Urine Protein Trace A Urine Glucose (UA) 100 mg/dl A Urine Ketones 40 mg/dl A Urine Urobilinogen >=8.0 e.u./dl A Urine Mucus Few A Meds: Medications Acetaminophen (Acetaminophen 325 Mg Tablet) 650 mg PO Q6HP PRN PRN Reason: PAIN/FEVER > 101 Last Admin: 03/12/21 20:29 Dose: 650 mg Documented by: Albuterol/Ipratropium (Ipratropium/Albuterol 3 Ml Ampul.Neb) 3 ml NEB Q4HP PRN PRN Reason: Shortness Of Breath Enoxaparin Sodium (Enoxaparin 40 Mg/0.4 Ml Syringe) 40 mg SQ DAILY [facility] Last Admin: 03/14/21 08:05 Dose: 40 mg Documented by: Potassium Chloride 40 meq/ (Dextrose) 520 mls @ 130 mls/hr IV UD PRN PRN Reason: Potassium < 3 Magnesium Sulfate (Magnesium Sulfate) 2 gm in 50 mls @ 50 mls/hr IV UD PRN PRN Reason: Magnesium </= 1.6 Ondansetron HCl (Ondansetron 4 Mg/2 Ml Vial) 4 mg IV Q4HP PRN PRN Reason: Nausea And Vomiting Polyethylene Glycol (Polyethylene Glycol 3350 17 Gm Packet) 17 gm PO DAILYP PRN PRN Reason: Constipation Potassium Chloride (Potassium Chloride 20 Meq Tablet) 40 meq PO UD PRN PRN Reason: Potssium is 3-3.5 Potassium Chloride (Potassium Chloride 20 Meq Tablet) 40 meq PO UD PRN PRN Reason: Potassium < 3 Sodium Chloride (0.9 % Sodium Chloride 10 Ml Syringe) 10 ml IV Q8 [facility] Last Admin: 03/14/21 12:36 Dose: 10 ml Documented by: A/P Narrative A/P Narrative: A: *Likely resolved encephalopathy: Multifactorial factorial including dehydration + Covid illness + underlying dementia -Per notes from [facility] he was confused at that time and niece that he has been more confused since Covid diagnosis -CT brain no acute -pending UA and infectious w/u -improving *Recent COVID PNA: -CXR b/l infiltrates *Resolved acute hypoxic respiratory failure: 2/2 Covid -Was discharged on 2 L nasal cannula from [facility], now on room air *Dementia: -CT brain with diffuse moderate atrophy and ischemic changes *PVD per old notes: was supposed to be on plavix *HTN per old notes: was supposed to be on ARB/BB *Transaminitis, mild: possibly 2/2 Covid *Generalized weakness/deconditioning/inability to care for self: Plan: -Completed Dexamethasone. -PT/OT -CM for placement -DVT ppx: Lovenox -Disposition: TBD Time Spent With Patient Time: Total time spent is greater than 50% in coordination of care (as docume nted) at patient's floor/unit and/or counseling patient: QUALITY VTE Deep Vein Thrombosis/Pulmonary Embolism Present on Admission: No
[2021-03-15] MEDS: 0.9 % SODIUM CHLORIDE 10 ML SYRINGE IV SCH ×4 (05:50→20:34)
[2021-03-15] MEDS: ENOXAPARIN 40 MG/0.4 ML SYRINGE SQ SCH (08:34)
--- NOTE | 2021-03-15 13:06 | Internal Med Progress Note ---
SUBJECTIVE Subjective Patient information: Note initiated : 03/15/21 at 1:04 pm Service Date, if different from initiated Date: [] Patient: Holger Marx a 75 y/o M admitted on 03/10/21 for Weakness. Chief Complaint: [] Interval history: History of present illness: Mr. Marx is a 75 year old M Presented to ED found by family because he was incontinent of stool and feces and confused. Sound like he lives by himself. He was recently diagnosed with Covid by EMS but continued to have shortness of breath and weakness and was brought in the ED on the fifth he was transferred to [facility] where he was treated until the eighth for Covid pneumonia and discharged home. Laboratory work-up was essentially unremarkable other than a mildly elevated white blood cell count. Appear to be dry. UA is pending procalcitonin is pending chest x-ray stable from the CT chest done [address] brain shows a moderate diffuse atrophy and chronic ischemic changes. 03/11 No overnight event. Patient speech is a little more clear today. Able to tell me his name more clearly and that he is in [place] yes or no to review of systems questions. 03/12 Awaiting for placement. 03/13 Follows simple commands, no issues overnight, awaiting placement. 03/14 Awaiting placement, completed Dexamethasone. 03/15 Awaiting placement. Review of Systems: denies headache/fever/chills/nausea/vomiting/chest or abdominal pain/cough/dyspnea/diarrhea. Constitutional Vitals: Vital Signs Temp Pulse Resp BP Pulse Ox 97.6 F 73 18 107/82 94 03/15/21 11:06 03/15/21 11:06 03/15/21 11:06 03/15/21 11:06 03/15/21 11:06 Period Temp Pulse Resp BP Sys/Mena Pulse Ox Last 24 Hr 96.6 F-98.4 F 66-84 16-24 83-147/50-90 91-95 Intake and Output 03/14/21 03/15/21 03/15/21 21:59 05:59 13:59 Intake Total 250 800 Output Total 1 Balance 249 800 Weight 77.882 kg Intake & Output: Intake & Output 03/14/21 03/15/21 03/15/21 21:59 05:59 13:59 Intake Total 250 800 Output Total 1 Balance 249 800 Weight 77.882 kg Intake: Oral 250 800 Output: # of times incontinent of urine 1 Other: Meal Lunch Breakfast Percent of Meal Consumed 25% 0% Feeding Ability Independent # Voids 1 # of times incontinent of 1 Bowels Exam: General: Awake, No acute Distress Eyes/N/T: EOMI, Head/Neck: neck supple, CV: RRR, No murmurs, Pulm: Clear b/l, no wheezing/rhonchi/rales Abd: soft, nontender, +BS x4 Ext: no clubbing/cyanosis/edema Neuro: Awake. Symmetrical strength and sensations intact. no focal deficits, moves all extremities, speech clear. Follows commands Skin: warm/dry OBJ DATA Labs CBC & Chem 7: 03/11/21 05:19 03/11/21 05:19 Meds: Medications Acetaminophen (Acetaminophen 325 Mg Tablet) 650 mg PO Q6HP PRN PRN Reason: PAIN/FEVER > 101 Last Admin: 03/12/21 20:29 Dose: 650 mg Documented by: Albuterol/Ipratropium (Ipratropium/Albuterol 3 Ml Ampul.Neb) 3 ml NEB Q4HP PRN PRN Reason: Shortness Of Breath Enoxaparin Sodium (Enoxaparin 40 Mg/0.4 Ml Syringe) 40 mg SQ DAILY [facility] Last Admin: 03/15/21 08:34 Dose: 40 mg Documented by: Potassium Chloride 40 meq/ (Dextrose) 520 mls @ 130 mls/hr IV UD PRN PRN Reason: Potassium < 3 Magnesium Sulfate (Magnesium Sulfate) 2 gm in 50 mls @ 50 mls/hr IV UD PRN PRN Reason: Magnesium </= 1.6 Ondansetron HCl (Ondansetron 4 Mg/2 Ml Vial) 4 mg IV Q4HP PRN PRN Reason: Nausea And Vomiting Polyethylene Glycol (Polyethylene Glycol 3350 17 Gm Packet) 17 gm PO DAILYP PRN PRN Reason: Constipation Potassium Chloride (Potassium Chloride 20 Meq Tablet) 40 meq PO UD PRN PRN Reason: Potssium is 3-3.5 Potassium Chloride (Potassium Chloride 20 Meq Tablet) 40 meq PO UD PRN PRN Reason: Potassium < 3 Sodium Chloride (0.9 % Sodium Chloride 10 Ml Syringe) 10 ml IV Q8 [facility] Last Admin: 03/15/21 05:50 Dose: 10 ml Documented by: A/P Narrative A/P Narrative: A: *Resolved encephalopathy: Probably at baseline now. Multifactorial factorial including dehydration + Covid illness + underlying dementia -Per notes from [facility] he was confused at that time and niece that he has been more confused since Covid diagnosis -CT brain no acute changes *Recent COVID PNA: resolved, on room air *Resolved acute hypoxic respiratory failure seconary to COVID *Dementia: -CT brain with diffuse moderate atrophy and ischemic changes *PVD per old notes: was supposed to be on plavix *HTN per old notes: was supposed to be on ARB/BB *Transaminitis, mild: possibly 2/2 Covid *Generalized weakness/deconditioning/inability to care for self: Plan: -PT/OT -CM for placement -DVT ppx: Lovenox -Disposition: SNF pending placement Time Spent With Patient Time: Total time spent is greater than 50% in coordination of care (as documented) at patient's floor/unit and/or counseling patient: QUALITY VTE Deep Vein Thrombosis/Pulmonary Embolism Present on Admission: No
[2021-03-16] MEDS: 0.9 % SODIUM CHLORIDE 10 ML SYRINGE IV SCH ×2 (03:41→04:05)
[2021-03-16] MEDS: ENOXAPARIN 40 MG/0.4 ML SYRINGE SQ SCH (08:47)
--- NOTE | 2021-03-16 12:00 | Discharge Summary ---
Discharge Provider Provider Patient information: Note initiated : 03/16/21 at 11:56 am Service Date, if different from initiated Date: [] Patient: Holger Marx 75 y/o M admitted on 03/10/21 for Weakness. Chief Complaint: [] Date of admission: 03/10/21 20:05 Discharge date: 03/16/21 Consults: 03/10/21 Consult to Physician [CONS] Stat Comment: Consulting Provider: Dallas Han Reason For Exam: Physician to Consult COURSE Hospital Course Hospital course: Mr. Marx is a 75 year old M Presented to ED found by family because he was incontinent of stool and feces and confused. Sound like he lives by himself. He was recently diagnosed with Covid by EMS but continued to have shortness of breath and weakness and was brought in the ED on the fifth he was transferred to [facility] where he was treated until the eighth for Covid pneumonia and d ischarged home. Laboratory work-up was essentially unremarkable other than a mildly elevated white blood cell count. Appear to be dry. UA is pending procalcitonin is pending chest x-ray stable from the CT chest done [address] brain shows a moderate diffuse atrophy and chronic ischemic changes. 03/11 No overnight event. Patient speech is a little more clear today. Able to tell me his name more clearly and that he is in [place] yes or no to review of systems questions. 03/12 Awaiting for placement. 03/13 Follows simple commands, no issues overnight, awaiting placement. 03/14 Awaiting placement, completed Dexamethasone. Mentating much better, possibly at baseline now. 03/15 Awaiting placement however discharge to home with family may be possible, CM looking into the later option. 03/16 Niece will watch over the patient, he wants to go home not to SNF so will discharged to home with niece and home health. Completed COVID therapy while in patient so no medications at discharge. Physical exam Head: Atraumatic, normal inspection. Eyes: normal appearance, no scleral icterus. Neck: full ROM Respiratory: no respiratory distress. Cardiovascular: normal rate and rhythm, S1, S2. GI/Abdominal: soft, nontender, no guarding. Extremities: full range of motion, nontender. Neurological: CN II-XII intact, intact motor, intact sensation. Psychiatric: impaired cognition, normal mood. Skin: warm, normal color Discharge diagnosis: Encephalopathy Secondary discharge diagnosis: COVID pneumonia Acute hypoxic respiratory failure Cognitive impairment Time Spent with Patient Time attestation: Total time spent providing and/or coordinating discharge services: EXAM Constitutional Vitals: Temp Pulse Resp BP Pulse Ox 97.3 F 73 16 110/62 94 03/16/21 08:00 03/16/21 08:00 03/16/21 08:00 03/16/21 08:00 03/16/21 08:00 Discharge Plan Patient/Caregiver Discharge Instructions Activity: increase activity as tolerated Diet: Regular Diet Prescriptions: Discontinued prednisone 10 mg tablet 40 mg PO DAILY RF: 0 Follow Up Plan Patient Disposition: Home, Self-Care Prognosis: Good Discharge Orders: Discharge Order (Routine); Ordered 03/16/21 Ordered By: Marco THRASHER VTE Deep Vein Thrombosis/Pulmonary Embolism Present on Admission: No
== END 2021-03-16 14:45 | disposition home or self-care (01) | DRG 70 ==
LOC: ED 12:37 → ICU 20:05
PROVIDERS: ADMIT Internal Medicine; ATTEND Internal Medicine